=== PATIENT | male | born 1955 | race Caucasian/White ===

== ENCOUNTER 2021-04-11 11:54 | Outpatient (CLI) | payer MEDICARE, OTHER | END 2021-04-11 11:55 | disposition home or self-care (01) | LOC: SCSMRI 11:54 | PROVIDERS: ATTEND Orthopaedic Surgery | DX: M23.92 Unspecified internal derangement of left knee (principal); M25.462 Effusion, left knee; M71.22 Synovial cyst of popliteal space [Baker], left knee; M22.2X2 Patellofemoral disorders, left knee ==